=== PATIENT | male | born 2000 | race Caucasian/White ===

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

== ENCOUNTER 2020-02-19 20:32 | Emergency (ER) | payer BC ==
[~2020-02-19] VITALS: Ht 177.8 cm; Wt 81.8 kg
--- NOTE | 2020-02-19 20:36 | NUR ---
temp @ screener 98.7
[2020-02-19] MEDS ORDERED: ondansetron 4mg rapidly disintigrating tab PO ONE (20:55)
[2020-02-19] MEDS ORDERED: diphenhydrAMINE 50 mg/ml inj IV ONE (21:05)
[2020-02-19] MEDS ORDERED: normal saline 1000ml 1,000 ML IV ONE (21:05)
[2020-02-19] MEDS ORDERED: proCHLORperazine 10 MG/2 ml inj IV ONE (21:05)
[2020-02-19] MEDS ORDERED: ondansetron/PF 4mg/2ml inj IV ONE (21:10)
[2020-02-19 21:31] LABS: BASOPHILS % (AUTO) 0.3 % (0-1); EOSINOPHILS % (AUTO) 0.1 % (0-6); HEMATOCRIT 45.4 % (42.0-52.0); HEMOGLOBIN 15.1 g/dl (14.0-17.9); LYMPHOCYTES % (AUTO) 7.3 % (21-51); MEAN CORPUSCULAR HEMOGLOBIN 29.7 PG (27.0-31.0); MEAN CORPUSCULAR HGB CONC 33.3 g/dL (33.0-36.5); MEAN CORPUSCULAR VOLUME 89.1 FL (78-98); MEAN PLATELET VOLUME 7.9 FL (7.4-10.4); MONOCYTES # (AUTO) 0.8 X10'3 (0-0.9); MONOCYTES % (AUTO) 5.5 % (2-12); NEUTROPHILS % (AUTO) 86.8 % (42-75); PLATELET COUNT 407 X10'3 (140-440); RED BLOOD COUNT 5.09 X10'6 (4.70-6.10); RED CELL DISTRIBUTION WIDTH 13.3 % (11.5-14.5); WHITE BLOOD COUNT 13.8 X10'3 (4.5-11.0)
[2020-02-19 21:40] LABS: ALANINE AMINOTRANSFERASE 34 U/L (12-78); ALBUMIN 4.9 G/DL (3.4-5.0); ALBUMIN/GLOBULIN RATIO 1.2 (1.1-1.5); ALKALINE PHOSPHATASE 94 IU/L (46-116); ANION GAP 11 (8-16); ASPARTATE AMINO TRANSFERASE 19 U/L (10-37); BILIRUBIN,TOTAL 0.9 MG/DL (0.1-1.0); BLOOD UREA NITROGEN 8 MG/DL (7-18); BUN/CREATININE RATIO 6.9 (5.4-32.0); CALCIUM 9.6 MG/DL (8.5-10.1); CHLORIDE 103 MMOL/L (99-107); CREATININE 1.16 MG/DL (0.60-1.10); GLUCOSE 115 MG/DL (70-104); LIPASE 66 U/L (73-393); POTASSIUM 3.8 MMOL/L (3.5-5.1); SODIUM 142 MMOL/L (135-145); TOTAL CARBON DIOXIDE 27.6 MMOL/L (24-32); eGFR 79 ML/MIN
[2020-02-19] MEDS ORDERED: ONDA4TAB6 PO (22:02)
[2020-02-19 22:19] VITALS: BP 117/87
== END 2020-02-19 22:22 | disposition home or self-care (01) ==
LOC: ER 20:33
DX: R11.2 Nausea with vomiting, unspecified (principal); R10.84 Generalized abdominal pain; F12.90 Cannabis use, unspecified, uncomplicated; Z79.899 Other long term (current) drug therapy; Z98.818 Other dental procedure status
CPT/HCPCS: 36415; 80053; 83690; 85025; 96361; 96374; 96375; 99284; J0780; J1200; J2405; J7030